=== PATIENT | male | born 1935 | race Caucasian/White ===

== ENCOUNTER 2022-11-13 06:45 | Day surgery (SDC) | payer OTHER ==
[2022-11-10 16:08] LABS: Absolute Lymphocytes (CBC) 2.2 K/uL (0.7-4.9); Hematocrit 40.5 % (39.6-49.0); Lymphocytes % 29.7 % (15.3-44.8); MCV 84.5 fL (80-100); MPV 9.1 fL (7.6-11.3); RBC Red Blood Cell Count 4.79 M/uL (4.33-5.43)
[2022-11-10 16:19] LABS: Potassium 3.9 mEq/L (3.5-5.1)
--- NOTE | 2022-11-10 16:24 | RAD REPORT ---
EXAM DESCRIPTION: Lenka Fairchild And Lat (2 Views)11/10/2022 4:04 pm CLINICAL HISTORY: Preop for hernia surgery. Hypertension COMPARISON: None FINDINGS: The lungs appear clear of acute infiltrate. Moderate hiatal hernia. Due to the hiatal hernia is difficult to ascertain the heart size.
[2022-11-13] MEDS ORDERED: Ringers Lactate 1,000 ML IV ONE ×2 (07:15→09:26)
[2022-11-13] MEDS: CEFAZOLIN SODIUM 1 GM/VIAL ONE ×2 (07:41→08:36)
[2022-11-13] MEDS ORDERED: propofoL 200 MG/20 ML VIAL IV ONE (08:26)
[2022-11-13] MEDS ORDERED: FENTANYL CITR 100 MCG/2 ML ONE (08:26)
[2022-11-13] MEDS ORDERED: ONDANSETRON 4 MG/2 ML VIAL ONE (08:26)
[2022-11-13] MEDS ORDERED: NEOSTIGMINE 1 MG/ML -10 ML VIAL ONE (08:26)
[2022-11-13] MEDS ORDERED: ROCURONIUM 50 MG/5 ML VIAL IV ONE (08:27)
[2022-11-13] MEDS ORDERED: MORPHINE 10 MG/ML VIAL ONE (08:27)
[2022-11-13] MEDS ORDERED: GLYCOPYRROLATE 0.2 MG/ML SYR ONE (08:27)
[2022-11-13] MEDS ORDERED: dexAMETHasone 10 MG/ML VIAL ONE (08:27)
[2022-11-13] MEDS ORDERED: KETOROLAC 30 MG/ML INJ ONE (08:28)
[2022-11-13] MEDS ORDERED: LIDOCAINE 1% MPF 5 ML VIAL ONE (08:29)
[2022-11-13] MEDS ORDERED: KETAMINE HCL IN 0.9 % NACL 50 MG/5 ML SYRINGE IV ONE (08:30)
--- NOTE | 2022-11-13 09:17 | P.BOP ---
Preoperative diagnosis: Large incarcerated inguinal hernia Postoperative diagnosis: same Primary procedure: Open repair of Large incarcerated left inguinal hernia with mesh Hand Tube Winder: JOSE LARA ([employer]) Estimated blood loss: <10cc Specimen: none Findings: Large incarcerated inguinal hernia Anesthesia: General Complications: None Drain(s): Other (mesh) Implants: mesh Transferred to: Recovery Room Condition: Good
[2022-11-13 10:18] VITALS: BP 134/67; TEMP 97.2; O2SAT 96
[2022-11-13] MEDS ORDERED: TAMSULOSIN 0.4 MG SR CAP PO ONE (10:25)
[2022-11-13] MEDS ORDERED: HYDROCODONE/APAP 7.5/325 MG TAB PO ONE ×2 (10:28→10:29)
[2022-11-13] MEDS ORDERED: TAMSULOSIN 0.4 MG SR CAP ONE (10:37)
[2022-11-13] MEDS ORDERED: HYDROCODONE/APAP 7.5/325 MG TAB ONE (10:38)
--- NOTE | 2022-11-13 11:02 | OP ---
Date of Procedure: 11/13/2022 Surgeon: Dimas Maki MD Bias Cutter: Kayleigh Singh. Primary Doctor: Dr. Hansen. Preoperative Diagnosis: Large incarcerated left inguinal hernia. Postoperative Diagnosis: Large incarcerated left inguinal hernia. Procedure: Open repair of large incarcerated left inguinal hernia with mesh. Estimated Blood Loss: Less than 10 cc. Specimen: None. Findings: Large incarcerated left inguinal hernia. Anesthesia: General plus local. Complications: None. Implant: A large mesh plug and sheath. Condition: Stable. Indications: This is a case of a male, who comes to us with a large incarcerated inguinal hernia. T he benefits, alternatives, and risks of repair open with mesh fully explained, which include, but not limited to infection, bleeding, damage to adjacent structures, anesthesia complication, recurrence, PR, and even . He also understands this may not relieve any symptoms. He might need more than one surgical intervention. He also understands we might be using mesh in that area. Pros and cons o f mesh were discussed with the patient and the questions were answered to his satisfaction. He leonel d a consent. Procedure In Detail: Patient was brought to the operating room, placed in supine position. Anesthes ia was done without complication. Abdominal and inguinal region were prepped and draped in a sterile fashion. Local anesthesia was applied followed by sharp incision of the skin on the left inguinal r egion after time-out. Incision was carried down to Raj fascia, which opened under direct vision. Identified direct hernia, large amount of content in that area. After releasing the ring, we were a ble to reduce that, but before that, we opened external oblique aponeurosis in the direction of the f ibers to connect to the deep inguinal ring. I then identified ilioinguinal nerve, iliohypogastric ne rve, and protected behind the external oblique aponeurosis. At that moment, we identified once again direct hernia cannot be reduced so we opened the ring a little bit and then we were able then to annabelle ntify the structures, looks viable and pushing through the hernia and imbricated the hernia sac. At that moment, I already have a cord structures protected with a Tabatha in the side and we were able t o reconstruct the inguinal canal by using Prolene to the pubic tubercle, shelving edge of the inguina l ligament and transversalis fascia. Once again, not catching the nerve. We have a mesh plug placed in the inguinal ring and secured that large mesh plug with a VersaTack. We continued to reconstruct the superficial inguinal ring until that area is covered, made sure the spermatic cord structures ar e protected with no strangulation. After that, I placed a mesh sheet on the floor of the canal secur ing that to the pubic tubercle, shelving edge of the inguinal ligament, and transversalis fascia and the tails looped around the spermatic cord without strangulation. No bleeding. At that moment, I pr oceeded to put the inguinal nerve, iliohypogastric nerve back into the inguinal canal. Reconstructed the superficial inguinal ring with 2-0 Prolene and then closed the external oblique aponeurosis bautista ng sure the nerves were not included. The area was irrigated. Raj fascia was closed with 3-0 chr omic and 0 chromic. Then, the skin with eren. Sponge count and instrument counts were correct. At the end of the case, testicles were in the scrotum. JAMARCUS/HENRI Voice ID: [id number] Report ID: [id number]
--- NOTE | 2022-11-13 11:50 | DS ---
Date of Discharge: 11/13/2022 Diagnosis: Large incarcerated left inguinal hernia. Procedure: Open repair of large incarcerated left inguinal hernia with mesh. Disposition: Home. Activity: As tolerated. No heavy lifting. Followup: Follow up in my office in 1 week. Call for appointment at [phone]. Discharge Instructions: Keep area dry for 48 hours, then may shower. Cold compresses to the left in guinal area. JAMARCUS/HENRI Voice ID: [id number] Report ID: [id number]
== END 2022-11-13 11:05 | disposition home or self-care (01) ==
LOC: OR 06:45
PROVIDERS: ATTEND Surgery
PROC: 0YU60JZ Supplement Left Inguinal Region with Synthetic Substitute, Open Approach (ICD-10-PCS; principal; 2022-11-13 08:30)
DX: K40.30 Unilateral inguinal hernia, with obstruction, without gangrene, not specified as recurrent (principal)
CPT/HCPCS: 85025; 80048; 36415; 71046; 49507; J2704; J2710; J2001; J3010; J1100; J2405; J7120 ×2; J0690